=== PATIENT | female | born 1965 | race Caucasian/White ===

== ENCOUNTER 2018-02-13 13:21 | Emergency (ER) | payer OTHER ==
[~2018-02-13] VITALS: Ht 162.6 cm; Wt 89.4 kg
[~2018-02-13 13:21] MED LIST: ASPIRIN325 MG PO; LOSARTAN POTASS25 MG PO; MELOXICAM7.5 MG PO; MOBIC PO; NORCO 10-325 T1 EACH PO; OXYBUTYNIN CHLOR5 MG PO
--- OUTSIDE RECORDS SUMMARY | 2018-02-13 13:23 | XMS REPORT ---
[facility] Address Unknown Phone Unavailable Care Team Providers Care Modeling And Simulation Analyst Name Role Phone NGOZI COX Unavailable Unavailable Problems This patient has no known problems. Allergies, Adverse Reactions, Alerts This patient has no known allergies or adverse reactions. Medications This patient has no known medications. Results Test Description Test Time Test Comments Text Results Atomic Results Result Comments KNEE LEFT 1-2 VIEWS [place] [address] Patient Name: MAYCO GAONA MR #: [id number] : 1965 Age/Sex: 51/F Req # : [id number] Adm Physician: Ordered by: NGOZI COX MD Report #: [id number] Location: OR Room/Bed: Procedure: [id number] DX/KNEE LEFT 1-2 VIEWS Exam Date: 07/11/17 Exam Time : 0940 REPORT STATUS: Signed PROCEDURE: X-RAY LEFT KNEE, ONE OR TWO VIEWS COMPARISON: Left knee, 3 views, 04/23/2017. INDICATIONS: POST OP KNEE SURGERY FINDINGS: See conclusion. CONCLUSION: Status post total left knee replacement with surrounding soft tissue swelling, air and marcy consistent with recent surgery. No acute fractures. Dictated by : Shaunna Farr M.D. on 07/11/2017 at 10:14 Electronically approved by: Shaunna Farr M.D. on 07/11/2017 at 10:14 Dictated By: SHAUNNA FARR MD [id number] Transcribed By: PENNIE on 07/11/17 1014 COPY TO: NGOZI COX MD
--- NOTE | 2018-02-13 14:12 | Diagnostic Imaging Report ---
PROCEDURE:X-RAY LEFT FOOT, COMPLETE COMPARISON:None. INDICATIONS:RIGHT FOOT PAIN FINDINGS: There are no fractures, dislocations, lytic or blastic lesions. The bones are well-mineralized. Mild degenerative changes of the distal interphalangeal joints. The soft-tissues are unremarkable. CONCLUSION: No acute fracture or dislocation of the left foot. Dictated by: Drew Barboza M.D. on 02/13/2018 at 14:14 Electronically approved by: Drew Barboza M.D. on 02/13/2018 at 14:14
[2018-02-13 15:56] VITALS: BP 168/96
== END 2018-02-13 16:13 | disposition home or self-care (01) ==
LOC: ER 13:21
DX: M79.672 Pain in left foot (principal); S93.622A Sprain of tarsometatarsal ligament of left foot, initial encounter; I10 Essential (primary) hypertension; J44.9 Chronic obstructive pulmonary disease, unspecified
CPT/HCPCS: 99283

== ENCOUNTER → 2018-09-12 | Outpatient (CLI) | payer OTHER ==
--- NOTE | 2018-09-12 15:02 | Diagnostic Imaging Report ---
Renal ultrasound. History: Hematuria Discussion: Transverse and longitudinal images of the kidneys were obtained demonstrating normal renal sizes and echogenicities. There is no evidence of hydronephrosis, mass or renal calculus. The right kidney measures 10.6 x 4.4 x 5.4 cm and the left kidney measures 9.2 x 4.7 x 5.0 cm in length. Maximum cortical thickness on the right is 1.2 cm and on the left is 1.3 cm. The urinary bladder is unremarkable. Prevoid estimated volume is 117.4 cc. Bilateral urinary jets are noted. There is no evidence of free fluid. IMPRESSION: Normal bilateral renal ultrasound. Signed by: Dr. Eliecer Noonan DO on 09/12/2018 2:59 PM
== END ==
LOC: US 12:42
PROVIDERS: ATTEND Urology
DX: R31.29 Other microscopic hematuria (principal)
CPT/HCPCS: 76770